=== PATIENT | female | born 1965 | race African-American/Black ===

== ENCOUNTER 2018-05-04 18:23 | Emergency (ER) | payer BC ==
[~2018-05-04] VITALS: Ht 172.7 cm; Wt 110.7 kg
[~2018-05-04 18:23] MED LIST: NORCO1 TA1 PO
[2018-05-04 18:30] VITALS: Ht 172.7 cm; Wt 110.7 kg
[2018-05-04 19:19] LABS: BASOPHIL % 1.2 % (0-2); PLATELET COUNT 256 x10^3mcL (130-400); RED CELL DISTRIBUTION WIDTH 12.8 % (11.5-14.5)
[2018-05-04 19:25] LABS: CALCIUM 9.6 mg/dL (8.5-10.1); CARBON DIOXIDE 31.2 mmol/L (21-32); CHLORIDE SERUM 106 mmol/L (98-107); CREATININE SERUM 0.8 mg/dL (0.6-1.0); GFR1 > 60 mL/min; GLUCOSE SERUM 94 mg/dL (74-106); POTASSIUM SERUM 3.7 mmol/L (3.5-5.1); SODIUM SERUM 142 mmol/L (136-145)
[2018-05-04 19:30] LABS: ALBUMIN 3.5 g/dL (3.4-5.0); ALKALINE PHOSPHATASE 77 U/L (46-116); ALT/SGPT 25 U/L (14-59); AST/SGOT 20 U/L (15-37); BILIRUBIN TOTAL 0.34 mg/dL (0.20-1.00); TOTAL PROTEIN, SERUM 7.6 g/dL (6.4-8.2)
[2018-05-04 21:02] VITALS: BP 133/61
== END 2018-05-04 21:03 | disposition home or self-care (01) ==
LOC: ED 18:23
PROVIDERS: Emergency Medicine
DX: R07.89 Other chest pain (principal); K21.9 Gastro-esophageal reflux disease without esophagitis; K29.70 Gastritis, unspecified, without bleeding; R20.2 Paresthesia of skin
CPT/HCPCS: J1885; Q0092

== ENCOUNTER 2019-05-19 15:25 | Emergency (ER) | payer OTHER ==
[~2019-05-19] VITALS: Ht 170.2 cm; Wt 96.2 kg
[2019-05-19 15:31] VITALS: Ht 170.2 cm; Wt 96.2 kg
[2019-05-19 16:44] LABS: CALCIUM 9.1 mg/dL (8.5-10.1); CARBON DIOXIDE 32.9 mmol/L (21-32); CHLORIDE SERUM 108 mmol/L (98-107); CREATININE SERUM 0.7 mg/dL (0.6-1.0); GFR1 > 60 mL/min; GLUCOSE SERUM 90 mg/dL (74-106); POTASSIUM SERUM 3.4 mmol/L (3.5-5.1); SODIUM SERUM 145 mmol/L (136-145)
[2019-05-19 16:48] LABS: ALBUMIN 3.5 g/dL (3.4-5.0); ALKALINE PHOSPHATASE 89 U/L (46-116); ALT/SGPT 24 U/L (14-59); AST/SGOT 19 U/L (15-37); BILIRUBIN TOTAL 0.24 mg/dL (0.20-1.00); LIPASE 179 IU/L (73-393); TOTAL PROTEIN, SERUM 7.6 g/dL (6.4-8.2)
[2019-05-19 17:25] LABS: BASOPHIL % 0.6 % (0-2); PLATELET COUNT 286 x10^3mcL (130-400); RED CELL DISTRIBUTION WIDTH 12.8 % (11.5-14.5)
[2019-05-19 17:50] VITALS: BP 137/75
== END 2019-05-19 17:50 | disposition home or self-care (01) ==
LOC: ED 15:25
PROVIDERS: Emergency Medicine
DX: K21.9 Gastro-esophageal reflux disease without esophagitis (principal); I10 Essential (primary) hypertension
CPT/HCPCS: 36415

== ENCOUNTER 2019-07-13 12:52 | Emergency (ER) | payer OTHER ==
[~2019-07-13] VITALS: Ht 170.2 cm; Wt 94.8 kg
[2019-07-13 13:01] VITALS: Ht 170.2 cm; Wt 94.8 kg
[2019-07-13 14:04] VITALS: BP 123/78
== END 2019-07-13 14:04 | disposition home or self-care (01) ==
LOC: ED 12:52
DX: R07.89 Other chest pain (principal); I10 Essential (primary) hypertension
CPT/HCPCS: J1885; Q0092